=== PATIENT | male | born 1995 | race Caucasian/White ===

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

== ENCOUNTER 2017-06-25 11:30 | Emergency (ER) | payer MEDICAID ==
[~2017-06-25] VITALS: Ht 177.8 cm; Wt 163.3 kg
[~2017-06-25 11:30] MED LIST changes: +AMOX-842 PO; -AUGMENTIN 875 M1 TAB PO; +CEPH-376 PO; -GENTAMICIN TP; +[UNRECOGNIZED DRUG - CODE] TP; -[UNRECOGNIZED DRUG - OTHER] PO; -[UNRECOGNIZED DRUG - OTHER] TP
[2017-06-25 11:31] VITALS: BP 141/82
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
[2017-06-25] MEDS ORDERED: KETOROLAC 60 MG/2 ML VIAL IM ONE (13:40)
[2017-06-25] MEDS ORDERED: CYCLOBENZAPRINE 10 MG TAB PO ONE (13:40)
--- NOTE | 2017-06-25 15:10 | NUR ---
Patient appears to be resting comfortably in bed. Vital Signs within normal limits. Respirations even and unlabored.WILL CONTINUE TO MONITOR.
[2017-06-25 15:57] VITALS: BP 118/73
--- NOTE | 2017-06-25 15:57 | NUR ---
Patient discharged with v/s stable. Written and verbal after care instructions given and explained. Patient alert, oriented and verbalized understanding of instructions. Ambulatory with steady gait. All questions addressed prior to discharge. ID band removed. Patient advised to follow up with PMD. Rx of NAPROSYEN AND FLEXERIL given. Patient educated on indication of medication including possible reaction and side effects. Opportunity to ask questions provided and answered.
== END 2017-06-25 15:57 | disposition home or self-care (01) ==
LOC: MED 11:30
DX: S06.0X9A Concussion with loss of consciousness of unspecified duration, initial encounter (principal); J32.9 Chronic sinusitis, unspecified; W22.8XXA Striking against or struck by other objects, initial encounter; Y93.13 Activity, water polo; Y92.89 Other specified places as the place of occurrence of the external cause; Y99.8 Other external cause status
CPT/HCPCS: 72040; 72100; 96372; 99284; J1885